=== PATIENT | female | born 1995 | race Caucasian/White ===

== ENCOUNTER 2018-08-16 11:30 | Emergency (ER) | payer BC, MEDICAID ==
[~2018-08-16] VITALS: Ht 160 cm; Wt 133.8 kg
[2018-08-16 11:45] VITALS: BP_SYST 147
== END 2018-08-16 12:15 | disposition home or self-care (01) ==
LOC: SED 11:30
DX: R03.0 Elevated blood-pressure reading, without diagnosis of hypertension (principal); E66.01 Morbid (severe) obesity due to excess calories; Z68.43 Body mass index [BMI] 50.0-59.9, adult
CPT/HCPCS: 93005; 99283

== ENCOUNTER 2018-08-17 21:26 | Emergency (ER) | payer BC, MEDICAID ==
[~2018-08-17] VITALS: Ht 160 cm; Wt 133.8 kg
[2018-08-17 21:31] VITALS: BP_SYST 158
[2018-08-17 22:28] VITALS: BP_SYST 158
== END 2018-08-17 22:28 | disposition home or self-care (01) ==
LOC: SED 21:26
DX: S93.401A Sprain of unspecified ligament of right ankle, initial encounter (principal); R03.0 Elevated blood-pressure reading, without diagnosis of hypertension; X50.9XXA Other and unspecified overexertion or strenuous movements or postures, initial encounter; Y93.89 Activity, other specified; Y92.89 Other specified places as the place of occurrence of the external cause; Y99.8 Other external cause status
CPT/HCPCS: 81025; 99283